=== PATIENT | male | born 1940 | race African-American/Black ===

== ENCOUNTER 2016-12-27 07:35 | Outpatient (CLI) | payer MEDICARE, BC ==
[2016-12-27 08:31] LABS: Cardiac Risk 3.1 (Less than 4.5)
== END 2016-12-27 07:36 | disposition home or self-care (01) ==
LOC: BURLAB 07:35
PROVIDERS: ATTEND Internal Medicine Cardiovascular Disease
DX: E78.2 Mixed hyperlipidemia (principal); Z79.899 Other long term (current) drug therapy
CPT/HCPCS: 36415; 80061; 84450; 84460

== ENCOUNTER 2017-03-14 15:50 | Outpatient (CLI) | payer MEDICARE, BC ==
--- NOTE | 2017-03-14 19:34 | RAD ---
CHEST TWO VIEWS 03/14/17 Comparison is made with the 11/18/13 study. There has been no significant interval change. Mild cardiomegaly is about the same. There is no vonda estion or pleural effusion. The lungs are clear though mildly hyperexpanded. Median sternotomy sutur es are seen as usual from prior surgery. IMPRESSION: Mild cardiomegaly with no change since 2013. POS: HOME
== END 2017-03-14 15:51 | disposition home or self-care (01) ==
LOC: BURRAD 15:50
PROVIDERS: ATTEND Family Medicine
DX: R06.09 Other forms of dyspnea (principal); I51.7 Cardiomegaly
CPT/HCPCS: 71020

== ENCOUNTER 2022-07-01 10:15 | Outpatient (CLI) | payer MEDICARE | END 2022-07-01 10:16 | disposition home or self-care (01) | LOC: BURRAD 10:15 | PROVIDERS: ATTEND Physician Assistant | DX: M54.6 Pain in thoracic spine (principal); M47.814 Spondylosis without myelopathy or radiculopathy, thoracic region | CPT/HCPCS: 72072 ==

== ENCOUNTER 2024-05-05 14:10 | Emergency (ER) | payer MEDICARE ==
[2024-05-05 14:59] LABS: #Basophils 0.1 thou/uL (0.0-0.2); #Eosinphils 0.3 thou/uL (0.0-0.7); #Lymphocytes 1.7 thou/uL (1.20-3.40); #Monocytes 0.7 thou/uL (0.11-0.59); #Neutrophils 5.4 thou/uL (1.40-6.50); %Basophils 1.5 % (0.0-1.0); %Eosinophils 3.3 % (0.0-10.0); %Lymphocytes 21.1 % (21.0-51.0); %Monocytes 8.2 % (0.0-10.0); %Neutrophils 65.9 % (42.0-75.0); Hematocrit 45.4 % (42.0-52.0); Hemoglobin 14.1 g/dL (14.0-18.0); Mean Corpuscular Hemoglobin 26.9 pg (27.0-31.0); Mean Corpuscular Volume 86.9 fl (78.0-98.0); Mean Platelet Volume 7.6 fL (7.4-10.4); Platelet Count 180 10x3/uL (130-400); RBC Distribution Width 13.6 % (11.5-14.5); Red Blood Cell (RBC) Count 5.23 mill/uL (4.70-6.10); White Blood Cell (WBC) Count 8.1 10x3/uL (4.8-10.8)
[2024-05-05] MEDS ORDERED: Meclizine HCl 25 MG TAB ONE (15:12)
[2024-05-05 15:13] LABS: ALT (SGPT) 12 U/L (8-55); AST (SGOT) 15 U/L (5-34); Albumin 3.3 g/dL (3.4-4.8); Alkaline Phosphatase 66 U/L (40-110); Anion Gap 14 mmol/L (10-20); BUN (Urea Nitrogen) 10 mg/dL (8.4-25.7); Bilirubin, Total 0.7 mg/dL (0.2-1.2); Calc. Creatinine Clearance 0 mL/min (70-130); Calcium 8.8 mg/dL (7.8-10.44); Carbon Dioxide 22 mmol/L (23-31); Chloride 107 mmol/L (98-107); Estimated GFR 71; Glucose 114 mg/dL (83-110); Potassium 3.8 mmol/L (3.5-5.1); Protein, Total 7.3 g/dL (5.8-8.1); Sodium 139 mmol/L (136-145)
[2024-05-05] MEDS ORDERED: Iopamidol 370 76% 100 ML VIAL ONE (15:35)
[2024-05-05] MEDS ORDERED: Aspirin Chewable 81 MG TAB ONE (16:11)
== END 2024-05-05 19:39 | disposition short-term general hospital (02) ==
LOC: BURERS 14:10
DX: R42 Dizziness and giddiness (principal); R29.700 NIHSS score 0
CPT/HCPCS: 70450; 70496; 70498; 80053; 85025; 93005; Q9967

== ENCOUNTER 2024-06-12 10:57 | Outpatient (CLI) | payer MEDICARE | END 2024-06-12 10:58 | disposition home or self-care (01) | LOC: BURRAD 10:57 | PROVIDERS: ATTEND Family Medicine | DX: R07.81 Pleurodynia (principal); S22.41XA Multiple fractures of ribs, right side, initial encounter for closed fracture ==